=== PATIENT | female | born 1950 | race Caucasian/White ===

== ENCOUNTER 2016-10-18 13:31 | Outpatient (CLI) | payer MEDICARE, BC ==
--- NOTE | 2016-10-18 17:13 | MRI Report ---
EXAM: MRI LUMBAR SPINE WITHOUT CONTRAST EXAM DATE: 10/18/2016 02:16 p.m. CLINICAL HISTORY: Spinal stenosis of the lumbar region. COMPARISON: None. TECHNIQUE: Multiplanar, multisequence T1-weighted and fluid-sensitive sequences of the lumbar spine f rom T12 to S1 without contrast. Other: None. FINDINGS: Spinal Cord: The conus terminates at T12-L1. No signal abnormality in the visualized spinal cord. Alignment: 4 mm of L4 on L5 anterolisthesis. Slight L2 on L3 retrolisthesis. Slight L5 on S1 anteroli sthesis. Bone Marrow: Five [id number] lumbar vertebral bodies are assumed. Vertebral body heights are radha ntained. No acute marrow edema. Mild chronic degenerative endplate signal changes at multiple levels, for example anteriorly at T10-T11 and L5-S1. Disk Levels/Facets: T12-L1: Unremarkable. L1-L2: Unremarkable. L2-L3: Mild degenerative disk disease and facet arthropathy. No stenosis. Shallow broad-based bulge. L3-L4: Mild degenerative disk disease. Mild to moderate facet arthropathy. Shallow broad-based bulge and additional more focal but small right posterior paracentral disk protrusion associated with mild right subarticular zone stenosis. L4-L5: Moderate degenerative disk disease. Severe facet arthropathy. No focal disk herniation. Patent neural foramina. Moderately prominent stenosis of the central canal and lateral recesses primarily f rom degenerative subluxation and posterior element hypertrophic degenerative changes. L5-S1: Moderately prominent chronic-appearing degenerative disk disease. Shallow bilateral intraforam inal disk protrusions. Anterior osteophytic spurring. Mild to moderate facet arthropathy. Patent cent ral canal. Mild foraminal stenosis bilaterally. Musculature: Moderate diffuse posterior paraspinal muscle fatty atrophy. Other: None. IMPRESSION: 1. Mild subarticular zone stenosis from a shallow right posterior paracentral disk protrusion at L3-L 4. 2. Degenerative disk disease, advanced facet arthropathy and degenerative subluxation at the L4-L5 le zhang where there is moderately prominent lateral recess and foraminal stenosis. 3. Prominent chronic degenerative disk disease at L5-S1. Mild foraminal stenosis bilaterally at this level where the central canal is patent. 4. Additional mild chronic degenerative changes are present without other evidence for significant ne ural impingement. Comment: The following findings are so common in adults without low back pain that while we report th eir presence, they must be interpreted with caution and in the context of the clinical situation. (Re abdoul Villasenor et al, Spine 2001) Prevalence of findings in patients without low back pain: Disk degeneration (any evidence): 92% Disk desiccation/T2 signal loss: 83% Disk height loss: 56% Disk bulge: 64% Disk protrusion: 32% Annular tear/high intensity zone: 38% RADIA Referring Provider Line: [phone] SITE ID: [id number]
== END 2016-10-18 13:32 | disposition home or self-care (01) ==
LOC: DI 13:31
PROVIDERS: ATTEND Physical Medicine & Rehabilitation
DX: M48.06 Spinal stenosis, lumbar region (principal); M51.36 Other intervertebral disc degeneration, lumbar region
CPT/HCPCS: 72148

== ENCOUNTER 2016-11-18 15:43 | Outpatient (CLI) | payer MEDICARE, BC ==
--- NOTE | 2016-11-19 12:20 | XRAY Report ---
FRONTAL PELVIS: 11/18/2016 CLINICAL INDICATION: Arthritis. FINDINGS: Frontal view of the pelvis demonstrates no evidence of fracture. The hip joints and sacro iliac joints appear unremarkable. IMPRESSION: NORMAL PELVIS. JOB #: [id number] EXT JOB #:[id number]
--- NOTE | 2016-11-19 14:07 | XRAY Report ---
TWO-VIEW LUMBAR SPINE: 11/18/2016 CLINICAL INDICATION: Arthritis, question instability. COMPARISON: MRI 10/18/2016 FINDINGS: Lateral flexion and extension views of the lumbar spine were obtained, as requested. Lateral flexion and extension views of the lumbar spine demonstrate anterolisthesis of L4 on L5, mandi uring 9 mm on both. There is no evidence of instability at L4-5. Degenerative changes are present, with disk space narrowing worst at L5-S1. No compression fracture is identified. IMPRESSION: ANTEROLISTHESIS OF L4 ON L5, STABLE ON FLEXION AND EXTENSION. DEGENERATIVE CHANGES. JOB #: [id number] EXT JOB #:
== END 2016-11-18 15:44 | disposition home or self-care (01) ==
LOC: DI.S 15:43
PROVIDERS: ATTEND Physical Medicine & Rehabilitation
DX: M43.16 Spondylolisthesis, lumbar region (principal); M51.37 Other intervertebral disc degeneration, lumbosacral region; M46.1 Sacroiliitis, not elsewhere classified
CPT/HCPCS: 72120; 72170

== ENCOUNTER 2017-08-03 21:28 | Emergency (ER) | payer MEDICARE, BC ==
[2017-08-03 22:33] LABS: BASOPHILS # (AUTO) 0.1 10^3/uL (0.0-0.1); BASOPHILS % (AUTO) 0.5 %; EOSINOPHILS # (AUTO) 0.1 10^3/uL (0.0-0.7); EOSINOPHILS % (AUTO) 0.4 %; HGB - HEMOGLOBIN 13.4 g/dL (12.0-16.0); LYMPHOCYTES # (AUTO) 1.1 10^3/uL (1.5-3.5); LYMPHOCYTES % (AUTO) 8.8 %; MEAN CORPUSCULAR HEMOGLOBIN 28.9 pg (27.0-31.0); MEAN CORPUSCULAR HGB CONC 33.1 g/dL (32.0-36.0); MEAN CORPUSCULAR VOLUME 87.3 fL (81.0-99.0); MEAN PLATELET VOLUME 8.7 fL (7.9-10.8); MONOCYTES # (AUTO) 0.8 10^3/uL (0.0-1.0); MONOCYTES % (AUTO) 6.7 %; NEUTROPHILS # (AUTO) 10.4 10^3/uL (1.5-6.6); NEUTROPHILS % (AUTO) 83.6 %; PLT - PLATELET COUNT 216 10^3/uL (130-450); RED BLOOD COUNT 4.65 10^6/uL (4.20-5.40); RED CELL DISTRIBUTION WIDTH 13.7 % (12.0-15.0); WHITE BLOOD COUNT 12.4 x10^3/uL (4.8-10.8)
[2017-08-03 22:44] LABS: ALBUMIN 3.8 g/dL (3.2-5.5); ALBUMIN/GLOBULIN RATIO 1.2 (1.0-2.2); CALCIUM 9.2 mg/dL (8.5-10.3); CREATININE 0.7 mg/dL (0.4-1.0)
[2017-08-03 23:07] LABS: BILIRUBIN,URINE NEGATIVE (NEGATIVE); GLUCOSE, URINE (UA) NEGATIVE (NEGATIVE); KETONES,URINE (UA) 15 mg/dL (NEGATIVE); LEUKOCYTE ESTERASE, URINE TRACE (NEGATIVE); NITRITE,URINE NEGATIVE (NEGATIVE); OCCULT BLOOD,URINE TRACE-LYSE (NEGATIVE); PROTEIN,URINE NEGATIVE (NEGATIVE); UROBILINOGEN,URINE 0.2 (NORMAL) E.U./dL (NORMAL)
--- NOTE | 2017-08-03 23:07 | ED Physician Documentation ---
PD HPI ABD PAIN - Stated complaint Stated Complaint: ABD PAIN - Chief complaint Chief Complaint: Abd Pain - History obtained from History obtained from: Patient - History of Present Illness Timing - onset: How many days ago (3) Timing - duration: Days Timing - details: Gradual onset, Waxing and waning Pain level now: 6 Quality: Indigestion (Tmax 101), Pain Location: Other (across lower abdomen) Improved by: Laying still Worsened by: Moving, Palpation Associated symptoms: Fever (100.6 Tmax), Nausea, Constipation. No: Vomiting Similar symptoms before: Has not had sx before Recently seen: Not recently seen Review of Systems Constitutional: reports: Fever Cardiac: reports: Reviewed and negative Respiratory: reports: Reviewed and negative GI: reports: Abdominal Pain, Nausea, Constipation. 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 - Present Medications Home Medications: Ambulatory Orders Medication Instructions Recorded Confirmed Estradiol [Estrace] 1 mg PO DAILY 12/23/14 02/22/16 Azithromycin [Zithromax] 250 mg PO DAILY #6 tablet 02/20/16 02/22/16 predniSONE [Prednisone] 20 mg PO BID #7 tablet 02/20/16 02/22/16 Albuterol Sulf [Ventolin Hfa 1 - 2 puffs INH Q4HR PRN 02/22/16 02/22/16 Inhaler] Ciprofloxacin HCl [Cipro] 500 mg PO BID #14 tablet 08/04/17 Metronidazole [Flagyl] 500 mg PO Q8HR #21 tablet 08/04/17 - Allergies Allergies/Adverse Reactions: Allergies Allergy/AdvReac Type Severity Reaction Status Date / Time codeine AdvReac Nausea Verified 08/03/17 21:40 - Living Situation Living Arrangement: reports: At home - Social History Does the pt smoke?: No Smoking Status: Never smoker Does the pt drink ETOH?: No Does the pt have substance abuse?: No - Immunizations Immunizations are current?: No Immunizations: TDAP >10years/unknown - POLST Patient has POLST: No PD ED PE NORMAL - Vitals Vital signs reviewed: Yes (temp. initially recorded as 69.9; RN says this was incorrect entry/changed) - General General: Alert and oriented X 3, No acute distress, Well developed/nourished - HEENT HEENT: Moist mucous membranes - Cardiac Cardiac: RRR, No murmur - Respiratory Respiratory: No respiratory distress, Clear bilaterally - Abdomen Abdomen: Normal bowel sounds, Soft, Non distended - Back Back: No CVA TTP - Derm Derm: Normal color, Warm and dry, No rash PD ED PE EXPANDED - Abdomen Abdomen: Tender to palpation, LLQ. No: Rebound, Guarding Results - Vitals Vitals: Vital Signs - 24 hr 08/03/17 08/04/17 08/04/17 21:36 00:00 01:00 Temperature 69.9 C H 36.6 C Heart Rate 110 H 112 H 100 Respiratory 18 18 18 Rate Blood Pressure 183/85 H 180/92 H 169/85 H O2 Saturation 99 98 96 Oxygen O2 Source Room air - Labs Labs: Laboratory Tests 08/03/17 08/03/17 08/03/17 22:25 22:25 22:30 WBC 12.4 H RBC 4.65 Hgb 13.4 Hct 40.6 MCV 87.3 MCH 28.9 MCHC 33.1 RDW 13.7 Plt Count 216 MPV 8.7 Neut # 10.4 H Lymph # 1.1 L [place] # 0.8 Eos # 0.1 Baso # 0.1 Absolute Nucleated RBC 0.00 Nucleated RBC % 0.0 Sodium 134 L Potassium 3.7 Chloride 100 L Carbon Dioxide 27 Anion Gap 7.0 BUN 10 Creatinine 0.7 Estimated GFR (MDRD) 83 L Glucose 105 H Calcium 9.2 Total Bilirubin 1.0 AST 18 ALT 18 Alkaline Phosphatase 48 Total Protein 7.0 Albumin 3.8 Globulin 3.2 Albumin/Globulin Ratio 1.2 Lipase 23 Urine Color YELLOW Urine Clarity HAZY Urine pH 6.0 Ur Specific [place] <=1.005 Urine Protein NEGATIVE Urine Glucose (UA) NEGATIVE Urine Ketones 15 H Urine Occult Blood TRACE-LYSE Urine Nitrite NEGATIVE Urine Bilirubin NEGATIVE Urine Urobilinogen 0.2 (NORMAL) Ur Leukocyte Esterase TRACE H Urine RBC 0-5 Urine WBC 4-5 Ur Epithelial Cells RARE Renal Tubular Ur Squamous Epith Cells MOD Squamous H Urine Bacteria Rare Ur Microscopic Review INDICATED Urine Culture Comments NOT INDICATED - Rads (name of study) CT A/P Radiology: Prelim report reviewed, See rad report PD MEDICAL DECISION MAKING - ED course Complexity details: reviewed results, re-evaluated patient, considered differential, d/w patient ED course: analgesia options discussed, she prefers tylenol and, on reevaluation after tests resulted, she reports excellent symptomatic relief Departure - Departure Disposition: Home, Self Care Clinical Impression: Diverticulitis of gastrointestinal tract Condition: Good Instructions: ED Diverticulitis Follow-Up: ROSAURA PEARSON MD [Primary Care Provider] - Prescriptions: Metronidazole [Flagyl] 500 mg PO Q8HR #21 tablet Ciprofloxacin HCl [Cipro] 500 mg PO BID #14 tablet Discharge Date/Time: 08/04/17 02:18
[2017-08-03 23:12] LABS: CLARITY,URINE HAZY (CLEAR)
[2017-08-03 23:37] LABS: BACTERIA,URINE Rare /HPF (None Seen); EPITHELIAL CELLS,UR RARE Renal Tubular /HPF (<= Few); RBC,URINE 0-5 /HPF (0-5); SQUAMOUS EPITHELIAL CELL,UR MOD Squamous (<= Few)
[2017-08-03] MEDS ORDERED: IOPAMIDOL-300 100 ML VIAL ONE (23:55)
[2017-08-03] MEDS ORDERED: ACETAMINOPHEN 325 MG TABLET PO STA (23:56)
[2017-08-04] MEDS ORDERED: IOPAMIDOL-300 100 ML VIAL IVP ONE (00:22)
--- NOTE | 2017-08-04 01:05 | CT Preliminary Report ---
Exam: CT ABDOMEN/PELVIS W/ IMPRESSION: 1. Diverticulitis without evidence of perforation or abscess. 2. There is a 4.2 x 2.6 cm left para midline lobulated soft tissue structure superior to the vaginal cuff possibly representing the left ovary. Consider pelvic ultrasound on an elective basis for confir mation. RADIA The above findings were discussed with Lorenzo Villeda by Dr. Ángel Dawson at 01:03 hrs on 07/09 10/25. SITE ID: [id number]
--- NOTE | 2017-08-04 01:05 | CT Report ---
EXAM: CT ABDOMEN AND PELVIS EXAM DATE: 08/04/2017 12:33 AM. CLINICAL HISTORY: Lower abdominal pain. COMPARISONS: None. TECHNIQUE: Routine helical CT imaging was performed through the abdomen and pelvis. IV contrast: 100M L ISOVUE 300. Enteric contrast: No. Reconstructions: Coronal and sagittal. In accordance with CT protocol optimization, one or more of the following dose reduction techniques w ere utilized for this exam: automated exposure control, adjustment of mA and/or KV based on patient s ize, or use of iterative reconstructive technique. FINDINGS: Lung Bases: Unremarkable. Liver: Normal. No masses. Gallbladder/Bile Ducts: Unremarkable. Spleen: Normal. Pancreas: Normal. Adrenal Glands: Normal. Kidneys: Normal. No masses or hydronephrosis. Peritoneal Cavity/Bowel: There is diffuse large bowel diverticulosis. Circumferential mural thickenin g with pericolic inflammatory stranding seen involving the mid sigmoid colon. No associated abscess o r perforation. No evidence of appendicitis. Pelvic Organs: The uterus has been removed. There is a lobulated 2.6 x 4.2 cm structure superior to t he vaginal cuff presumably representing the left ovary. Vasculature: No aneurysms or other significant abnormality. Bones: No significant abnormality. Other: None. IMPRESSION: 1. Diverticulitis without evidence of perforation or abscess. 2. There is a 4.2 x 2.6 cm left para midline lobulated soft tissue structure superior to the vaginal cuff possibly representing the left ovary. Consider pelvic ultrasound on an elective basis for confir lorion. RADIA The above findings were discussed with Lorenzo Villeda by Dr. Ángel Dawson at 01:03 hrs on 07/09 10/25. Referring Provider Line: [phone] SITE ID: [id number]
[2017-08-04 01:57] VITALS: BP 169/85
[2017-08-04] MEDS ORDERED: CIPROFLOXACIN 250 MG TABLET PO STA (02:02)
[2017-08-04] MEDS ORDERED: metroNIDAZOLE 250 MG TABLET PO STA (02:03)
== END 2017-08-04 02:18 | disposition home or self-care (01) ==
LOC: ED 21:28
DX: K57.92 Diverticulitis of intestine, part unspecified, without perforation or abscess without bleeding (principal)
CPT/HCPCS: 36415; 74177; 80053; 81001; 83690; 85025; 99283; 99284; A9270; Q9967; 81003; 87086

== ENCOUNTER 2017-08-13 18:05 | Outpatient (CLI) | payer MEDICARE, BC ==
--- NOTE | 2017-08-14 09:44 | Ultrasound Report ---
PELVIC ULTRASOUND: 08/13/2017 HISTORY: Followup abnormal CT scan abdomen and pelvis 08/04/2017 demonstrating a 4.2 x 2.6 left pelvic lobulated soft tissue structure superior to the vaginal cuff. Cervical Cancer. TECHNIQUE: Real-time scanning by the block setter gypsum with saved static images reviewed. Transabdominal approach for global evaluation. Endovaginal approach for detailed assessment. FINDINGS: The uterus and right ovary are surgically absent. The left ovary measures 5.2 x 1.5 x 2.9 cm, volume 12.2 mL. Normal Doppler flow is present. A 1.5 x 1.9 x 2.1 cm hypoechoic region is seen, likely an ovarian cyst. This is difficult to image due to the patient's inability to tolerate transvaginal scanning. No free fluid is seen. IMPRESSION: STATUS POST HYSTERECTOMY AND RIGHT OOPHORECTOMY. THE SOFT TISSUE DENSITY SEEN ON THE PRIOR CT SCAN MOST LIKELY REPRESENTS THE RESIDUAL LEFT OVARY WITH A SMALL CYST. SUGGEST FOLLOWUP PELVIC ULTRASOUND IN 6 MONTHS TO ASSESS FOR INTERVAL CHANGE GIVEN THE HISTORY OF CERVICAL CANCER. TD: 08/14/2017 09:25 DELILAH
== END 2017-08-13 18:06 | disposition home or self-care (01) ==
LOC: DI 18:05
PROVIDERS: ATTEND Physician Assistant
DX: R93.8 Abnormal findings on diagnostic imaging of other specified body structures (principal); Z85.41 Personal history of malignant neoplasm of cervix uteri
CPT/HCPCS: 76830; 76856

== ENCOUNTER 2018-01-23 14:54 | Outpatient (CLI) | payer MEDICARE, BC ==
--- NOTE | 2018-01-24 12:32 | XRAY Report ---
Reason: Lumar facet arthropathy, DDD, Lumbar stenosis Procedure Date: 01/23/2018 Accession Number: [id number] / [id number] Procedure: XR - Lumbar Spine w/Flex/Ext CPT Code: FULL RESULT: EXAM: LUMBOSACRAL SPINE RADIOGRAPHY EXAM DATE: 01/23/2018 03:44 PM. CLINICAL HISTORY: Low back pain, sciatic nerve pain for about a year and a half. Lumbar facet arthropathy, DDD, Lumbar stenosis. COMPARISONS: 11/18/2016. 09/27/2016. CT from 08/04/2017. TECHNIQUE: 5 views. FINDINGS: Alignment: Anterolisthesis of L4 on L5 which measures 11 mm in the neutral position and measures on flexion 11-11.5 mm and on extension 10 mm. No dislocation. No scoliosis. Bones: Five [id number] lumbar vertebral bodies are present. Degenerative spurring. No acute fracture. Disks: Mild to moderate disk space narrowing throughout the lumbar spine greatest at L4-L5 and L5-S1. Facets: Mild to marked lumbar facet arthropathy. Soft Tissues: Vascular calcifications. No bowel obstruction. IMPRESSION: 1. Grade 1/2 anterolisthesis of L4 on L5 with minimal translation between flexion extension. 2. Mild to moderate degenerative changes of lumbar spine. 3. Lumbar facet arthropathy. RADIA
== END 2018-01-23 14:55 | disposition home or self-care (01) ==
LOC: DI 14:54
PROVIDERS: ATTEND Physical Medicine & Rehabilitation
DX: M47.816 Spondylosis without myelopathy or radiculopathy, lumbar region (principal); M51.36 Other intervertebral disc degeneration, lumbar region; M48.062 Spinal stenosis, lumbar region with neurogenic claudication; M43.16 Spondylolisthesis, lumbar region; M51.37 Other intervertebral disc degeneration, lumbosacral region
CPT/HCPCS: 72114

== ENCOUNTER 2018-04-06 12:12 | Outpatient (CLI) | payer MEDICARE, BC ==
--- NOTE | 2018-04-06 16:13 | MRI Report ---
Reason: LUMBAR STENOSIS WITH NEUROGENIC CLAUDICATION,SPOND Procedure Date: 04/06/2018 Accession Number: [id number] / [id number] Procedure: MRI - Lumbar Spine W/O CPT Code: FULL RESULT: EXAM: MRI LUMBAR SPINE WITHOUT CONTRAST EXAM DATE: 04/06/2018 12:53 PM. CLINICAL HISTORY: Lumbar stenosis with neurogenic claudication, spond. COMPARISON: MRI lumbar spine 04/06/2018. TECHNIQUE: Multiplanar, multisequence T1-weighted and fluid-sensitive sequences of the lumbar spine from T12 to S1 without contrast. Other: None. FINDINGS: Numbering assumes 5 non-rib bearing lumbar type vertebral bodies. There is a 1.1 cm focus of low T1 and low T2 signal which is slightly inversion recovery hyperintense involving the L5 vertebral body. This is unchanged in size. A similar finding is seen in the right paramedian aspect of the T12 vertebral body. This is stable as well. No new area of abnormal marrow signal is present. No abnormal signal has developed in the conus medullaris. Inversion recovery hyperintensity signal in the L4-L5 disk space which is of low T1-weighted signal has increased. This is likely degenerative in nature. There is no endplate edema to suggest an infectious or inflammatory etiology. T10-T11 and T11-T12: Posterior bulge of the annulus. T12-L1: No posterior disk protrusion. L1-L2: No posterior disk protrusion. L2-L3: A minimal posterior disk protrusion is seen. No stenosis. L3-L4: A minimal posterior disk protrusion is seen. Superior lateral recess narrowing is seen bilaterally greater on the right. No overt central canal stenosis. L4-L5: No posterior disk protrusion. Central canal is mildly stenotic. L5-S1: A shallow foraminal protrusion is seen on the right. Superior lateral recess narrowing is seen bilaterally. No stenosis. This is stable. Facet/ligamentum flavum hypertrophy is seen throughout the lumbar spine greatest in the mid and lower lumbar spine. Grade 1 anterolisthesis of L4 relative to L5 is stable. Loss of disk space height anteriorly at L5-S1 is stable. IMPRESSION: 1. Stable MRI of the lumbar spine. 2. Central canal stenosis is present at L4-L5. This is stable. 3. No new posterior disk protrusions have developed. 4. No foraminal stenosis. 5. Stable grade 1 anterolisthesis of L4 relative to L5. 6. Areas of abnormal marrow signal at T12 and at L5 are stable. Stability suggests atypical vertebral body hemangioma formation. Comment: The following findings are so common in adults without low back pain that while we report their presence, they must be interpreted with caution and in the context of the clinical situation. (Reference Hamilton et al, Spine 2001) Prevalence of findings in patients without low back pain: Disk degeneration (any evidence): 92% Disk desiccation/T2 signal loss: 83% Disk height loss: 56% Disk bulge: 64% Disk protrusion: 32% Annular tear/high intensity zone: 38% RADIA
== END 2018-04-06 12:13 | disposition home or self-care (01) ==
LOC: DI 12:12
PROVIDERS: ATTEND Physical Medicine & Rehabilitation
DX: M51.26 Other intervertebral disc displacement, lumbar region (principal); M43.16 Spondylolisthesis, lumbar region; M47.816 Spondylosis without myelopathy or radiculopathy, lumbar region; M48.061 Spinal stenosis, lumbar region without neurogenic claudication
CPT/HCPCS: 72148

== ENCOUNTER 2018-10-19 11:37 | Outpatient (CLI) | payer SELFPAY | END 2018-10-19 11:38 | disposition home or self-care (01) | LOC: LAB 11:37 | DX: Z01.89 Encounter for other specified special examinations (principal) | CPT/HCPCS: 36415 ==

== ENCOUNTER 2019-06-24 16:35 | Outpatient (CLI) | payer MEDICARE, BC | END 2019-06-24 16:36 | disposition home or self-care (01) | LOC: COV 16:35 | PROVIDERS: ATTEND Family Medicine | DX: R50.9 Fever, unspecified (principal); R05 Cough; R53.83 Other fatigue; J02.9 Acute pharyngitis, unspecified | CPT/HCPCS: 81599 ==

== ENCOUNTER 2021-01-26 09:43 | Outpatient (CLI) | payer MEDICARE, BC ==
[2021-01-26 15:32] LABS: ALBUMIN 3.7 g/dL (3.2-5.5); ALBUMIN/GLOBULIN RATIO 1.2 (1.0-2.2); ALKALINE PHOSPHATASE 44 IU/L (42-121); ALT ALANINE AMINOTRANSFERASE 16 IU/L (10-60); AST ASPARTATE AMINOTRANSFERASE 16 IU/L (10-42); BILIRUBIN,TOTAL 0.6 mg/dL (0.2-1.0); BUN - BLOOD UREA NITROGEN 13 mg/dL (6-20); CALCIUM 9.3 mg/dL (8.5-10.3); CARBON DIOXIDE - CO2 27 mmol/L (21-32); CHLORIDE 105 mmol/L (101-111); CHOL/HDL RATIO 4.6 (<4.4); CHOLESTEROL 222 mg/dL; CREATININE 0.9 mg/dL (0.4-1.0); GFR - MDRD 62 (>89); GLUCOSE 102 mg/dL (70-100); HDL CHOLESTEROL 48 mg/dL; LDL CHOLESTEROL,CALCULATED 149 mg/dL; LDL/HDL RATIO 3.1 (<4.4); POTASSIUM 3.8 mmol/L (3.5-5.0); SODIUM 138 mmol/L (135-145); TOTAL PROTEIN 6.7 g/dL (6.7-8.2); TRIGLYCERIDES 125 mg/dL; VLDL CHOLESTEROL 25 mg/dL
[2021-01-26 20:58] LABS: ESTIMATED AVERAGE GLUCOSE 100 mg/dL (70-100); HEMOGLOBIN A1c% 5.1 % (4.27-6.07)
== END 2021-01-26 09:44 | disposition home or self-care (01) ==
LOC: LAB.S 09:43
PROVIDERS: ATTEND Internal Medicine
DX: I65.29 Occlusion and stenosis of unspecified carotid artery (principal)
CPT/HCPCS: 36415; 80053; 80061; 83036; 83721

== ENCOUNTER 2021-05-16 09:52 | Outpatient (CLI) | payer MEDICARE, BC ==
[2021-05-16 15:21] LABS: BASOPHILS % (AUTO) 0.4 %; EOSINOPHILS # (AUTO) 0.1 10^3/uL (0.0-0.7); EOSINOPHILS % (AUTO) 2.4 %; HGB - HEMOGLOBIN 13.5 g/dL (12.0-16.0); LYMPHOCYTES # (AUTO) 1.3 10^3/uL (1.5-3.5); MEAN CORPUSCULAR HEMOGLOBIN 28.5 pg (27.0-31.0); MEAN CORPUSCULAR HGB CONC 32.1 g/dL (32.0-36.0); MEAN CORPUSCULAR VOLUME 88.8 fL (81.0-99.0); MEAN PLATELET VOLUME 12.5 fL (7.9-10.8); MONOCYTES # (AUTO) 0.4 10^3/uL (0.0-1.0); MONOCYTES % (AUTO) 7.3 %; NEUTROPHILS # (AUTO) 3.3 10^3/uL (1.5-6.6); NEUTROPHILS % (AUTO) 64.5 %; PLT - PLATELET COUNT 134 10^3/uL (130-450); RED BLOOD COUNT 4.73 10^6/uL (4.20-5.40); RED CELL DISTRIBUTION WIDTH 13.7 % (12.0-15.0); WHITE BLOOD COUNT 5.1 x10^3/uL (4.8-10.8)
[2021-05-16 15:41] LABS: ALBUMIN 3.9 g/dL (3.2-5.5); ALBUMIN/GLOBULIN RATIO 1.4 (1.0-2.2); ALKALINE PHOSPHATASE 49 IU/L (42-121); ALT ALANINE AMINOTRANSFERASE 17 IU/L (10-60); AST ASPARTATE AMINOTRANSFERASE 18 IU/L (10-42); BILIRUBIN,TOTAL 0.3 mg/dL (0.2-1.0); BUN - BLOOD UREA NITROGEN 10 mg/dL (6-20); CALCIUM 9.7 mg/dL (8.5-10.3); CARBON DIOXIDE - CO2 26 mmol/L (21-32); CHLORIDE 107 mmol/L (101-111); CHOL/HDL RATIO 5.1 (<4.4); CHOLESTEROL 229 mg/dL; CREATININE 0.7 mg/dL (0.4-1.0); GFR - MDRD 82 (>89); GLUCOSE 100 mg/dL (70-100); HDL CHOLESTEROL 45 mg/dL; LDL CHOLESTEROL,CALCULATED 161 mg/dL; LDL/HDL RATIO 3.6 (<4.4); POTASSIUM 3.8 mmol/L (3.5-5.0); SODIUM 141 mmol/L (135-145); TOTAL PROTEIN 6.7 g/dL (6.7-8.2); TRIGLYCERIDES 113 mg/dL; VLDL CHOLESTEROL 23 mg/dL
[2021-05-16 15:47] LABS: THYROID STIMULATING HORMONE 1.24 uIU/mL (0.34-5.60)
[2021-05-16 15:49] LABS: FREE T4 (FREE THYROXINE) 0.89 ng/dL (0.58-1.64)
== END 2021-05-16 09:53 | disposition home or self-care (01) ==
LOC: LAB.S 09:52
PROVIDERS: ATTEND Internal Medicine
DX: I10 Essential (primary) hypertension (principal); M35.9 Systemic involvement of connective tissue, unspecified; K21.9 Gastro-esophageal reflux disease without esophagitis; Z13.1 Encounter for screening for diabetes mellitus; Z13.220 Encounter for screening for lipoid disorders
CPT/HCPCS: 36415; 80053; 80061; 83036; 83721; 84439; 84443; 85025

== ENCOUNTER 2021-05-23 12:42 | Outpatient (CLI) | payer MEDICARE, BC ==
--- NOTE | 2021-05-23 13:56 | SLEEP CARE CONSULTATION ---
Information from patient questionnaire entered by Ines Corey MA. I have reviewed and concur with the information entered by Ines Corey MA. This document represents the service I personally performed and the decisions made by , Tammy Will ARNP. History of Present Illness Service Date and Time: 05/23/2021 1242 Reason for Visit: New patient (ONSET 03/2021, NO PRIORS,) Chief Complaint: reports: Unrefreshed sleep, Snoring, Frequent awakenings at nig ht, Other (High blood pressure) Date of Onset: YEARS Usual bedtime: 0100 Time it takes to fall asleep: 2-3 MINUTES Snores at night: Yes Observed to quit breathing while asleep: No (live alone) Sleeps alone due to snoring: No (live alone) Number of times waking at night: 2-3 Reasons for waking at night: reports: Pain (sciatic pain on right side), Bathroom, Other (cough heard off phone bonilla during sleep; cats) Toss, Turn, or Twitch while sleeping: No Recalls having dreams: Yes Usually gets out of bed at: 0730 Feels refreshed in the morning: No Morning headache: No Sleepy or fatigued during the day: Yes (late afternoon) Ever fallen asleep while driving: No (little drowsy driving on long road trips) Takes day naps: Yes (1 every couple weeks; 10-15 mins usually) Dreams during day naps: No Prior sleep studies: No Additional HPI information: I had the pleasure of seeing KLEBER MENJIVAR today regarding the possibility of her having a sleep disorder. Her current complaints are frequent night awakenings and high blood pressure. - Parasomnia Symptoms Ever been unable to move upon waking from sleep: Yes (only during daytime naps) Walks in sleep: No Talks in sleep: No (don't know) Ever acted out dreams in sleep: No Ever felt weak in the knees when startled or emotional: No Bothered by creepy, crawly, restless sensations in legs: No Problems with memory or concentration: No Subjective Initial [place] Sleepiness Scale score: 6 (05/2021) Past Medical History Past Medical History: reports: Hypertension, Arthritis (in hands), Other (HOT FLASHES - takes hormones post-menopause; sciatica pain right hip) Social History The patient's occupation is a RE. Patient is Single and lives in . Have you smoked in the past 12 months: No Cigarettes per day (20/pack): 20 Years of smokin Quit date: 1980 Smoking Pack Years: 15.0 Alcohol use: No Caffeine use: Yes Caffeine amount and frequency: 1 cup decaf tea daily; diet coke 2-3 x a week Family History Family history of sleep disordered breathing: No (KNA) Allergies and Home Medications Known drug allergies: Yes (CODIENE) Home medication list reviewed: Yes Allergy and home medication list: Allergies codeine Adverse Reaction (Verified 08/03/17 21:40) Nausea Medications: BIEST, compound cream estradiol 2 mg Progesterone 125 mg Micronidazole cream 0.75% Valsartan for BP starting 05/24/21 Lidocaine cream Preparation H ointment Annetta Apple Cider Vinegar gummies for hiatal hernia Hydrocortisone 7.5 mg Vitamin C 1000 mg Vitamin D-3 5000 IU [place] Citizen choice GI - probiotic Thymus Natural Glandular Cats Claw extract CT joint care Saccharonijes Boulardii - probiotic Stress Tonic Female Balance Spleen Thymus Kj Carvajal drops Review of Systems Weight gain over past 5 years: 20 Weight loss over past 5 years: 20 Cardiovascular: reports: high blood pressure, leg or foot swelling, have to sleep sitting up Respiratory: reports: sputum production Gastrointestinal: reports: heartburn Urinary: reports: frequency Neurological: reports: head trauma (2015 bad fall onto forehead, concussion) Ear/Nose/Throat: reports: wisdom teeth removed. denies: tonsillectomy Musculoskeletal: reports: joint pain, muscle pain or cramping Immunologic: reports: allergies to food or environment (eggs, chicken, dairy, soy sensitivities) Physical Exam Vital signs obtained and entered by: Christine COREY CMA AAVIVIANA Blood Pressure: 135/75 (PULSE 92, RESP 16, LEFT,) Cuff size: wrist Heart Rate: 90 O2 Saturation: 98 (PAPER MASK) Height: 5 ft 4 in Weight: 202 lb (W/O CLOTHES) Body Mass Index: 34.7 BMI Classification: Obese Neck circumference: 15 (inches) Mouth and throat: normal Soft palate: long Hard palate: normal Uvula: normal Uvula visualization: 100% Mallampati Class I Tongue: enlarged in size with teeth gamino on lateral edges Tonsils: 1+ Neck: normal w/o lymphadenopathy or thyromegaly Heart: regular rate and rhythm, murmur Lungs: clear bilaterally Impression and Plan 1. Suspected Obstructive Sleep Apnea-Hypopnea Syndrome, as suggested by a history of irregular snoring, frequent awakening during the night and unrefres hed sleep. Narrow oropharynx and obesity are common predisposing factors for obstructive sleep apnea-hypopnea syndrome. I recommend proceeding to polysomnography to confirm the diagnosis and to assess severity. If the patient has significant sleep disordered breathing, a manual CPAP titration study will also be performed to find the optimal treatment pressure. I informed the patient of what the sleep studies involve and after some discussion, obtained agreement to proceed. The pathophysiology of obstructive sleep apnea-hypopnea syndrome was discussed with the patient and health risks of cardiovascular and cerebrovascular disease if not treated. Risks of drowsy driving discussed in detail and patient advised to avoid long distance driving and to puller through at the first sign of drowsiness. Patient agreed to plan. * Schedule polysomnography +- manual CPAP titration study and return in 1-2 weeks after the study to discuss results. * Avoid long distance driving or driving when feeling sleepy. * Avoid alcohol, sedative and muscle relaxant around bedtime. * Attempt to lose weight. * Review instructions provided by trained office staff on how to prepare for the sleep study. * Return for follow-up after sleep study completed. Counseling Topics: Weight loss health impact Visit Type: In Office Time Spent with Patient (minutes): 46 Provider Statement: I spent 100% of the Face to Face Visit with the patient with greater than 50% spent counseling the patient and coordination of care.
[2021-05-23 13:57] VITALS: BP 135/75
== END 2021-05-23 12:43 | disposition home or self-care (01) ==
LOC: SC 12:42
PROVIDERS: ATTEND Nurse Practitioner Family
DX: G47.8 Other sleep disorders (principal); R06.83 Snoring; I10 Essential (primary) hypertension; E66.9 Obesity, unspecified; Z68.34 Body mass index [BMI] 34.0-34.9, adult; Z87.891 Personal history of nicotine dependence
CPT/HCPCS: 99203; G0463; 99212

== ENCOUNTER 2022-03-10 09:27 | Outpatient (CLI) | payer MEDICARE | END 2022-03-10 09:28 | disposition EMS.NT | LOC: EMS 09:27 | DX: R07.89 Other chest pain (principal); R00.0 Tachycardia, unspecified ==

== ENCOUNTER 2022-12-12 09:52 | Outpatient (CLI) | payer MEDICARE, OTHER ==
[2022-12-12 14:28] LABS: BASOPHILS % (AUTO) 0.5 %; EOSINOPHILS # (AUTO) 0.1 10^3/uL (0.0-0.7); EOSINOPHILS % (AUTO) 1.5 %; HCT - HEMATOCRIT 41.8 % (37.0-47.0); HGB - HEMOGLOBIN 13.3 g/dL (12.0-16.0); LYMPHOCYTES # (AUTO) 1.6 10^3/uL (1.5-3.5); LYMPHOCYTES % (AUTO) 26.5 %; MEAN CORPUSCULAR HEMOGLOBIN 29.3 pg (27.0-31.0); MEAN CORPUSCULAR HGB CONC 31.8 g/dL (32.0-36.0); MEAN CORPUSCULAR VOLUME 92.1 fL (81.0-99.0); MEAN PLATELET VOLUME 12.8 fL (7.9-10.8); MONOCYTES # (AUTO) 0.4 10^3/uL (0.0-1.0); NEUTROPHILS # (AUTO) 3.8 10^3/uL (1.5-6.6); PLT - PLATELET COUNT 142 10^3/uL (130-450); RED BLOOD COUNT 4.54 10^6/uL (4.20-5.40); RED CELL DISTRIBUTION WIDTH 13.7 % (12.0-15.0)
[2022-12-12 14:52] LABS: ALBUMIN/GLOBULIN RATIO 1.6 (1.0-2.2); ALKALINE PHOSPHATASE 46 IU/L (42-121); ALT ALANINE AMINOTRANSFERASE 15 IU/L (10-60); AST ASPARTATE AMINOTRANSFERASE 16 IU/L (10-42); BILIRUBIN,TOTAL 0.5 mg/dL (0.2-1.0); BUN - BLOOD UREA NITROGEN 13 mg/dL (6-20); CALCIUM 9.8 mg/dL (8.5-10.3); CARBON DIOXIDE - CO2 29 mmol/L (21-32); CHLORIDE 109 mmol/L (101-111); CHOL/HDL RATIO 4.3 (<4.4); CHOLESTEROL 231 mg/dL; CREATININE 0.6 mg/dL (0.6-1.3); GFR - MDRD 98 (>89); GLUCOSE 98 mg/dL (74-104); HDL CHOLESTEROL 54 mg/dL; LDL CHOLESTEROL,CALCULATED 151 mg/dL; LDL/HDL RATIO 2.8 (<4.4); POTASSIUM 4.3 mmol/L (3.5-4.5); SODIUM 141 mmol/L (135-145); TOTAL PROTEIN 6.5 g/dL (6.4-8.9); TRIGLYCERIDES 129 mg/dL (48-352); VLDL CHOLESTEROL 26 mg/dL
[2022-12-12 18:41] LABS: ESTIMATED AVERAGE GLUCOSE 108 mg/dL (70-100); HEMOGLOBIN A1c% 5.4 % (4.27-6.07)
== END 2022-12-12 09:53 | disposition home or self-care (01) ==
LOC: LAB.S 09:52
PROVIDERS: ATTEND Internal Medicine
DX: I10 Essential (primary) hypertension (principal); R73.9 Hyperglycemia, unspecified; E78.00 Pure hypercholesterolemia, unspecified
CPT/HCPCS: 36415; 80053; 80061; 83036; 83721; 85025